=== PATIENT | male | born 1985 | race Two or more races ===

== ENCOUNTER 2021-12-15 11:54 | Emergency (ER) | payer BC ==
[~2021-12-15] VITALS: Ht 193 cm; Wt 91.0 kg
[2021-12-15] MEDS: MORPHINE SULFATE 4 MG/ML CPJ (NOT FOR IM USE) IV STA ×2 (12:04→12:31)
[2021-12-15] MEDS ORDERED: ONDANSETRON HCL 4MG/2ML INJ IV STA (12:04)
[2021-12-15] MEDS ORDERED: SODIUM CHLORIDE 0.9% 1,000 ML IV ONE (12:15)
[2021-12-15] MEDS ORDERED: BACITRACIN ZINC OINT UDPKT TOP ONE (13:45)
[2021-12-15] MEDS ORDERED: MORPHINE SULFATE 4 MG/ML CPJ (NOT FOR IM USE) IV NR (14:00)
[2021-12-15] MEDS ORDERED: TETANUS, DIPHTHERIA, PERTUSSIS VAC/PF 0.5ML (>10YR OLD) IM ONE (15:15)
[2021-12-15] MEDS ORDERED: IBUP-2030 MT (16:11)
[2021-12-15] MEDS ORDERED: BACI28.32 TP (16:11)
[2021-12-15] MEDS ORDERED: HYDR-4001 MT (16:11)
[2021-12-15 16:38] VITALS: BP 118/66
== END 2021-12-15 17:16 | disposition home or self-care (01) ==
LOC: ER 13:16
DX: S82.832A Other fracture of upper and lower end of left fibula, initial encounter for closed fracture (principal); S82.292A Other fracture of shaft of left tibia, initial encounter for closed fracture; S70.212A Abrasion, left hip, initial encounter; S70.312A Abrasion, left thigh, initial encounter; S80.212A Abrasion, left knee, initial encounter; M54.2 Cervicalgia; M54.6 Pain in thoracic spine; V28.0XXA Motorcycle driver injured in noncollision transport accident in nontraffic accident, initial encounter; Y93.89 Activity, other specified; Y92.488 Other paved roadways as the place of occurrence of the external cause
CPT/HCPCS: 29515; 71045; 72125; 72170; 73590; 73600; 90471; 90715; 96361; 96374; 96375; 99284; J2270; J2405; J7030